=== PATIENT | male | born 2000 | race Caucasian/White ===

== ENCOUNTER 2022-06-10 15:08 | Emergency (ER) | payer OTHER, SELFPAY ==
[2022-06-10 16:02] VITALS: BP 121/68; PULSE 85; RESP 16; TEMP 36.6; O2SAT 100; BMI 25.8
[2022-06-10 18:22] LABS: PCR FLU A Negative PCR FLU A (Negative); PCR FLU B Negative PCR FLU B (Negative)
[2022-06-10 18:33] LABS: SARS PCR* Negative SARS-CoV-2 (Negative)
[2022-06-10 18:53] LABS: D Dimer Quantitative* < 0.27 ug/ml (0.00-0.50)
[2022-06-10 19:16] LABS: Troponin I* < 0.01 ng/mL (0.01-0.04)
--- NOTE | 2022-06-10 21:17 | ED_ITS ---
HPI - General Adult General Date Seen: 06/10/22 Chief complaint: Shortness of Breath/Dyspnea Stated complaint: TROUBLE BREATHING Time Seen by Provider: 06/10/22 17:40 Source: patient History of Present Illness HPI narrative: Patient is a 22-year-old college student, sophomore at [employer], who says that for the past week or so he has been having some difficulty with shortness of breath. He says he notices it most prominently at night when he is trying to sleep, although sometimes when he is walking around campus he will notice as well. He says he has had some nonpleuritic chest pain on both sides of his rib cage which he describes as tight feeling. This tends to be associated with the shortness of breath. He has not noticed any wheezing. He does not have a history of asthma or allergies that he is aware of. He does currently vape tobacco, he is previously smoked but he is trying to stop using cigarettes. He denies any marijuana or THC use. He says he does not use any other substances. He has not had any fever cough, no other upper respiratory symptoms. Currently not feeling short of breath and not having any chest pain. No lower extremity swelling or pain. No personal or family history of DVT or PE. Related Data Previous Rx's Medication Instructions Recorded albuterol sulfate 90 mcg/actuation 2 inh inhalation QID PRN shortness 06/10/22 aerosol inhaler of breath or wheezing #6.7 grams Allergies Allergy/AdvReac Type Severity Reaction Status Date / Time No Known Drug Allergies Allergy Verified 06/10/22 16:01 Review of Systems Status of ROS: Reports: 10 or more systems reviewed and unremarkable except as noted in History and below [facility] Social History Smoking Status: Current every day smoker What tobacco products do you use: cigarettes Do you use any of these nicotine containing products: Vaping Products Second hand tobacco smoke exposure: No How often do you have a drink containing alcohol: never How often do you have six or more drinks on one occasion: Never AUDIT-C Alcohol total score: 0 Non-prescribed substance use: denies use Exam Narrative: Exam Narrative: Vital signs as noted above. In general, an alert, well-appearing patient. Head: Normocephalic, atraumatic. Eyes: Pupils are equal reactive. Extraocular movements are full. Conjunctivae are normal. ENT: Mucous membranes are moist. Throat is normal. Neck: Supple without lymphadenopathy. Heart: Regular rate and rhythm. No murmur or rub. Lungs: Clear bilaterally. No increased work of breathing, crackles or wheezes. Abdomen: Soft and nontender. No organomegaly. Extremities: Well perfused. No edema. No calf tenderness. Pulses intact. Neurologic: Patient is alert and oriented to person and place. Speech is fluent. Face is symmetric. Moves all extremities equally. Affect: Normal. Skin: Warm and dry. Well perfused. Const: Vital Signs, click to edit/add: Vital Signs - 24 hr 06/10/22 16:02 Temperature 97.9 F Pulse Rate [Right Pulse Oximeter] 85 Respiratory Rate 16 Blood Pressure [Ri ght Upper Arm] 121/68 Pulse Oximetry 100 Oxygen Delivery Me thod Room Air Documenting provider has reviewed patient's vital signs: yes Course Course Hospital Course: I did do an EKG here which by my review shows a normal sinus rhythm, ventricular rate of 67 beats per minute. No acute ST segment changes. No S1 Q 3 T3. I checked a D-dimer and a troponin both of which are negative. He is eager to go at this point. Due to a very busy day in the ER he had to wait in triage for couple of hours before being seen. He has clear lungs, equal breath sounds, O2 sats 100%. I do not think that this represents a pneumonia, and I am not overly suspicious of pneumothorax given the lack of pleuritic or unilateral pain, intermittent symptoms. Chest x-ray is deferred. He is interested in trying inhaler just to see if it helps him symptomatically. We did discuss that certainly right now would avoid smoking and vaping. If symptoms are persistent over the next week would have him follow up with primary care or return. If any worsening, significant shortness of breath, more significant chest pain, new symptoms such as fever, he should be re-evaluated more urgently. Vital Signs Vital signs: Initial Vital Signs Temperature 97.9 F 06/10/22 16:02 Temperature Source Temporal Artery Scan 06/10/22 16:02 Pulse Rate 85 06/10/22 16:02 Respiratory Rate 16 06/10/22 16:02 Blood Pressure 121/68 06/10/22 16:02 Blood Pressure Mean 85 09/13/22 16:02 Blood Pressure Position Sitting 06/10/22 16:02 Pulse Oximetry 100 06/10/22 16:02 Oxygen Delivery Method 06/10/22 16:02 Vital Signs Temperature 97.9 F 06/10/22 16:02 Pulse Rate 85 06/10/22 16:02 Respiratory Rate 16 06/10/22 16:02 Blood Pressure 121/68 06/10/22 16:02 Pulse Oximetry 100 06/10/22 16:02 Oxygen Delivery Method 06/10/22 16:02 Temperature 97.9 F 06/10/22 16:02 Pulse Rate 85 06/10/22 16:02 Respiratory Rate 16 06/10/22 16:02 Blood Pressure 121/68 06/10/22 16:02 Pulse Oximetry 100 06/10/22 16:02 Oxygen Delivery Method 06/10/22 16:02 Medical Decision Making Lab Data Labs: Lab Results 06/10/22 06/10/22 06/10/22 Range/Units 17:35 18:15 18:15 D-Dimer Quant (PE/DVT) < 0.27 (0.00-0.50) ug/ml Troponin I < 0.01 L (0.01-0.04) ng/mL SARS-CoV-2 (PCR) Negative SARS-CoV-2 (Negative) Influenza Type A (PCR) Negative PCR FLU A (Negative) Influenza Type B (PCR) Negative PCR FLU B (Negative) Discharge Plan Discharge Patient Disposition: Home, Self-Care Condition: Stable Instructions: Shortness of Breath (ED) Additional Instructions: Try inhaler to see if that helps her symptomatically. Avoid cigarettes and vaping for now as much as possible. Primary care followup if you do not feel you are improving over the next 1-2 weeks Prescriptions: New albuterol sulfate 90 mcg/actuation HFA aerosol inhaler 2 inh inhalation QID PRN (Reason: shortness of breath or wheezing) Qty: 6.7 0RF Follow Up/Referrals: Provider,Not a Local [Primary Care Provider] - Stand Alone Forms: [facility] Info Instructions
== END 2022-06-10 19:55 | disposition home or self-care (01) ==
PROVIDERS: Emergency Provider Emergency Medicine
DX: R06.02 Shortness of breath (principal)
CPT/HCPCS: 36415; 84484; 85379; 87631; 93005; 99283; 99284

== ENCOUNTER 2023-01-14 14:02 | Outpatient (CLI) | payer OTHER, SELFPAY | END 2023-01-14 14:03 | disposition home or self-care (01) | PROVIDERS: Visit Provider Family Medicine | DX: R06.02 Shortness of breath (principal); R53.83 Other fatigue; R07.89 Other chest pain; F41.9 Anxiety disorder, unspecified | CPT/HCPCS: 80053; 80061; 83880; 84443 ==

== ENCOUNTER 2023-01-15 11:42 | Outpatient (CLI) | payer OTHER, SELFPAY | END 2023-01-15 11:43 | disposition home or self-care (01) | LOC: NFLDREF 01-17 17:44 | PROVIDERS: Visit Provider Family Medicine | DX: R06.02 Shortness of breath (principal) | CPT/HCPCS: 85379 ==